=== PATIENT | female | born 1970 | race Caucasian/White ===

== ENCOUNTER → 2023-11-19 13:55 | Outpatient (REF) | payer OTHER, SELFPAY | LOC: HWRAD 13:55 | PROVIDERS: ATTENDING PHYSICIAN Family Medicine | DX: E01.0 Iodine-deficiency related diffuse (endemic) goiter (principal); Z83.49 Family history of other endocrine, nutritional and metabolic diseases | CPT/HCPCS: 76536 ==

== ENCOUNTER → 2023-12-24 07:24 | Outpatient (REF) | payer OTHER, SELFPAY ==
[2023-12-24 07:40] VITALS: BP 154/91; BP_SYST 79
== END ==
LOC: RADI 07:24
PROVIDERS: ATTENDING PHYSICIAN Family Medicine
DX: E04.1 Nontoxic single thyroid nodule (principal)
CPT/HCPCS: 88173; 10005